=== PATIENT | male | born 1955 | race Caucasian/White ===

== ENCOUNTER → 2024-02-26 08:04 | Outpatient (REF) | payer OTHER, SELFPAY | LOC: DHCBC MAIN 08:04 | PROVIDERS: ATTENDING PHYSICIAN Internal Medicine Cardiovascular Disease; FAMILY PHYSICIAN Family Medicine | DX: I34.0 Nonrheumatic mitral (valve) insufficiency (principal) | CPT/HCPCS: 93306 ==

== ENCOUNTER → 2024-03-04 06:28 | Day surgery (SDC) | payer OTHER, SELFPAY | LOC: GI 06:28 | PROVIDERS: ATTENDING PHYSICIAN Internal Medicine Gastroenterology | DX: Z86.010 Personal history of colon polyps (principal); K57.30 Diverticulosis of large intestine without perforation or abscess without bleeding; K22.89 Other specified disease of esophagus; K21.00 Gastro-esophageal reflux disease with esophagitis, without bleeding; K44.9 Diaphragmatic hernia without obstruction or gangrene; D12.2 Benign neoplasm of ascending colon; K22.70 Barrett's esophagus without dysplasia | CPT/HCPCS: 45380; 43239; 88305 ==

== ENCOUNTER 2025-09-05 09:07 | Emergency (ER) | payer OTHER, SELFPAY ==
[2025-09-05 09:12] VITALS: BP 128/80
--- NOTE | 2025-09-05 10:31 | ED.GENMED ---
History of Present Illness
General
Chief Complaint: Bowel Problem
Source: patient and spouse
Exam Limitations: none
Time Seen by Provider: 09/05/25 10:15
Nursing documentation reviewed up to this point in time: agreed with
History of Present Illness
History of Present Illness:
70-year-old male with a past medical history as noted presents to the ER for evaluation of constipation. Patient reports that he has not been able to have a bowel movement for the past 4 or 5 days. He says that he has had increased sensation of
abdominal bloating. He says he does have urge to defecate but has not been able to pass stool. He is having some increased pressure in his rectum. Came to the ER for assessment. He has not had any nausea or vomiting. He denies any abdominal
pain. No fever or chills. He does report that he tried Dulcolax and stool softener as well as prune juice and warm lemon water but none of these things seem to be helping. He denies any prior significant abdominal surgeries.
Past History
Past History
ED Past Medical History: GERD and Other (Diverticulosis, diverticulitis)
ED Past Surgical History: Tonsilectomy and Other (Right hand surgery)
Social History
Tobacco: Non-smoker
Alcohol: None
Drug: None
Personal:
Living: with family
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
Family History
Family History: Other (n/c)
Review of Systems
Review of Systems
All Other Systems: ROS reviewed and negative except as documented in HPI and ROS
Constitutional: Denies fever or chills
ABD/GI: Reports constipated; Denies abdominal pain, nausea or vomiting
: Denies flank pain
Musculoskeletal: Denies neck pain or back pain
Phy Exam
Physical Exam
Physical Exam:
General: Awake, alert, oriented x3; no acute distress
Head: Normocephalic, atraumatic
Eyes: Conjunctiva normal, sclera anicteric
Throat: Airway intact, handling secretions
Neck: Trachea midline
Lungs: Breathing comfortably with no distress, no tachypnea or hypoxia
Heart: Regular rate
Abd: Soft, mild distention, nontender to deep palpation
Rectal: Patient had fecal impaction on initial digital rectal exam�patient was disimpacted for hard brown stool at bedside with relief of symptoms; he did have a small amount of bright red blood per rectum after digital disimpaction suspect from
local trauma
Neuro: Grossly intact
Extremities: No edema in extremities, warm and well-perfused
Scores
Heart Failure Risk
Heart Failure Risk Score: Not Applicable
Heart Score for Chest Pain Patients
STEMI patient?: Not applicable
Withdrawal Assessment of Alcohol
Withdrawal Assessment Completed?: Not applicable
Course
Orders/Labs/Results
Orders:
Orders
09/05/25 10:31
Enema- Treatment ONCE
Type: Milk of Molasses
09/05/25 10:19
09/05/25 10:19
Vital Signs
Initial and Last Documented VS:
Initial Vital Signs
Temp Pulse Resp BP Pulse Ox
36.6 C 80 18 128/80 98
09/05/25 09:12 09/05/25 09:12 09/05/25 09:12 09/05/25 09:12 09/05/25 09:12
Last Documented Vital Signs
Temp Pulse Resp BP Pulse Ox
36.6 C 80 18 128/80 98
09/05/25 09:12 09/05/25 09:12 09/05/25 09:12 09/05/25 09:12 09/05/25 10:31
MDM/Problems Addressed
Differential Diagnosis Includes:
Fecal impaction, constipation, bowel obstruction considered but unlikely
MDM/Problems Addressed:
70-year-old male presents for constipation and bloating for the past 4 to 5 days despite [id number] medications as above. Vitals and exam as above�he was noted to have a fecal impaction on digital rectal exam. He was disimpacted at bedside.
Small amount of bright red blood after disimpaction suspect from local trauma. He did have some residual soft stool that was beyond the reach of my finger�will plan for an enema to fully evacuate. No indication for emergent labs or imaging�no
signs of bowel obstruction clinically.
Patient had large bowel movement after enema. Feeling much better afterwards, stable for discharge advised to continue fluids, exercise, high-fiber diet. Patient indicated understanding. All questions answered.
*Pulse Oximetry
SaO2: 98
Oxygen Mode of Delivery: Room air
Patient hypoxic: no (98%)
*Critical Care Note
Total Time (30-74mins, 75-104mins- exclusive of procedures): Not Applicable
Data Reviewed
Source: patient and spouse
Further Testing Considered But Not Given:
Considered lab work, considered CT abdomen, considered x-ray of the abdomen
ED Attending Note
-
Portions of this chart may have been created with voice recognition software.� Occasional wrong word or��sound alike� substitutions may have occurred due to the inherent limitations of voice recognition software.
Discharge Plan
Departure
Patient Disposition: Home (Routine Discharge)
Date of Disposition: 09/05/25
Time of Disposition: 11:50
Patient with high blood pressure during this ER visit?: No
Discharge Problem:
Fecal impaction, Constipation
Instructions: Constipation, Adult (DC), Fecal Impaction (DC)
Prescriptions:
No Action
esomeprazole magnesium [Nexium] 40 MG capsule,delayed release(DR/EC)
40 mg PO DAILY
losartan 50 MG tablet
50 mg PO DAILY
ciprofloxacin HCl 500 MG tablet
500 mg PO BID
aspirin [Denilson Low Dose Aspirin] 81 MG tablet,delayed release (DR/EC)
81 mg PO DAILY
amoxicillin-pot clavulanate 1 TABLET tablet
1 tab PO Q12 Qty: 14 0RF
oxycodone-acetaminophen 5 MG/325 MG tablet
1 tab PO Q4HPRN PRN (Reason: severe pain) Qty: 15 0RF
Referrals:
Malvin Underwood DO [Family Provider, [facility]] - Follow up in 5-7 days
Activity Restrictions/Additional Instructions:
Thank you for visiting the Emergency Department at [facility].
1. Please schedule a follow up appointment as directed. Call first thing tomorrow morning to make an appointment.
2. If indicated, please take your medications as instructed and indicated on discharge paperwork.
3. If any of your symptoms do not improve, or persist, or become more severe within 6-12 hours, please return to the emergency department for further care.
4. Please return to the emergency department if you develop a headache, neck pain/stiffness, fever greater than 100.4F, chest pain, shortness of breath, persistent nausea, vomiting, slurred speech, difficulty walking, numbness/tingling, weakness,
signs of infection or any other symptoms that are worrisome to you.
Please call [phone] if you have any questions.
Interventions
Interventions:
*Risk Screen - Suicide Last Done: 09/05/25 09:12
*General Assessment Last Done: 09/05/25 09:12
Discharge Date and Time
Print Language: BHUTANESE
[2025-09-05 11:59] VITALS: BP 131/81
== END 2025-09-05 11:55 | disposition home or self-care (01) ==
LOC: EMR 09:07
PROVIDERS: EMERGENCY PHYSICIAN Emergency Medicine; FAMILY PHYSICIAN Family Medicine
DX: K56.41 Fecal impaction (principal); K21.9 Gastro-esophageal reflux disease without esophagitis; Z79.82 Long term (current) use of aspirin
CPT/HCPCS: 99282